=== PATIENT | female | born 1960 | race American Indian/Alaskan Native ===

== ENCOUNTER 2018-11-06 12:56 | Outpatient (CLI) | payer MEDICARE, MEDICAID ==
[~2018-11-06 12:56] MED LIST: POTA20TA19 PO
== END 2018-11-06 23:59 | disposition home or self-care (01) ==
LOC: RAD 12:56
PROVIDERS: ATTEND Family Medicine
DX: I69.391 Dysphagia following cerebral infarction (principal); R13.12 Dysphagia, oropharyngeal phase; R47.1 Dysarthria and anarthria; I10 Essential (primary) hypertension; Z87.891 Personal history of nicotine dependence
CPT/HCPCS: 74230

== ENCOUNTER 2019-04-04 10:35 | Outpatient (CLI) | payer MEDICARE, MEDICAID | END 2019-04-04 23:59 | disposition home or self-care (01) | LOC: RAD 10:35 | PROVIDERS: ATTEND Family Medicine | DX: G40.909 Epilepsy, unspecified, not intractable, without status epilepticus (principal); Z87.898 Personal history of other specified conditions | CPT/HCPCS: 95816 ==